=== PATIENT | male | born 1980 | race Two or more races ===

== ENCOUNTER 2025-03-11 06:10 | Day surgery (SDC) | payer MEDICAID, SELFPAY ==
[2025-03-09 08:08] VITALS: BMI 30.4
[2025-03-09 09:00] LABS: Collection Type, Urine Voided; Squamous Epithelial Cell,Urine 0 /hpf (0-5)
[2025-03-09 10:19] LABS: Basophils # (Auto) 0.1 Thou/mm3 (0.0-0.2); Basophils % (Auto) 2 % (0-2.5); Eosinophils # (Auto) 0.2 Thou/mm3 (0.0-0.5); Eosinophils % (Auto) 3 % (0-10); Hematocrit 46.6 % (41.0-53.0); Immature Granulocytes % (Auto) 1 % (0-0); Immature Granulocytes Auto 0.04 Thou/mm3 (0.00-0.00); Lymphocytes # (Auto) 2.3 Thou/mm3 (1.0-4.8); Lymphocytes % (Auto) 35 % (10-50); Mean Corpuscular HGB Conc 36.5 g/dl (31.0-37.0); Mean Corpuscular Hemoglobin 31.6 pg (25.0-35.0); Mean Corpuscular Volume 87 fL (80-100); Monocytes # (Auto) 0.4 Thou/mm3 (0.0-0.8); Monocytes % (Auto) 7 % (0-12); Neutrophils # (Auto) 3.6 Thou/mm3 (1.8-7.7); Neutrophils % (Auto) 54 % (37-80); Nucleated Red Blood Cell % 0 /100 WBC (0); Platelet Count 223 Thou/mm3 (140-440); RDW Standard Deviation 40.9 fL (35.1-43.9); Red Blood Count 5.38 Miln/mm3 (4.50-5.90); White Blood Count 6.6 Thou/mm3 (3.8-10.6)
[2025-03-09 10:22] LABS: Bilirubin,Urine Negative (Negative); Blood,Urine Negative (Negative); Clarity,Urine Clear (Clear/Hazy); Color,Urine Yellow (Lt Yel-Yel); Glucose, Urine Negative (Negative); Ketones,Urine Negative (Negative); Leukocyte Esterase,Urine Negative (Negative); Nitrite,Urine Negative (Negative); Protein,Urine Negative (Neg - Trace); RBC,Urine 2 /hpf (0-3); Specific Gravity,Urine 1.028 (1.001-1.035); Urobilinogen,Urine Negative mg/dL (0.0-1.0); WBC,Urine 1 /hpf (0-5)
[2025-03-09 10:27] LABS: Albumin, Serum 4.3 gm/dL (3.5-5.0); Anion Gap 8 (7-16); BUN/Creatinine Ratio 12 Ratio (12-20); Blood Urea Nitrogen 11 mg/dL (9-23); Chloride 105 mMol/L (98-107); Creatinine (Component) 0.9 mg/dL (0.6-1.3); Estimated Creatinine Clearance 99.3 mL/min (>60); Glucose 108 mg/dL (74-106); Osmolality,Calculated 279 (275-295); Phosphorous 3.1 mg/dL (2.4-5.1); Potassium 4.3 mMol/L (3.4-5.1); Sodium 140 mMol/L (136-145); eGFR > 60 See Note
[2025-03-11] VITALS (8 sets, daily range): BP systolic 102–128; BP diastolic 66–93; PULSE 62–75; RESP 12–14; TEMP 36.2–36.9; O2SAT 95–98; BMI 30.1
[2025-03-11] MEDS: RINGERS LACTATED 1000 ML 1,000 ML 20 ML IV (06:51)
--- NOTE | 2025-03-11 07:29 | ESHP_ITS ---
RE: ANGELA DILLON : 1980 DATE OF ADMISSION: 03/10/2025 HISTORY OF PRESENT ILLNESS: The patient is a 44-year-old gentleman, Yi- speaking with 7 children. He desires bilateral vasectomy for family planning. PREVIOUS SURGERIES: Bilateral inguinal hernia repair. PAST MEDICAL HISTORY: There is no history of diabetes mellitus and no history of hypertension. MEDICATIONS: None. ALLERGIES: NO MEDICATIONS. CLINICAL EXAMINATION: HEENT: Normal. NECK: Supple. LUNGS: Clear. CARDIOVASCULAR: Heart sounds are normal. ABDOMEN: Soft without any organomegaly. No guarding. No rigidity. EXTREMITIES: Normal. GENITOURINARY: Phallus is normal. Testes are down in scrotum. IMPRESSION: The patient desiring bilateral vasectomy for family planning. PLAN: Bilateral vasectomy. Planned procedure, risks and complications have been discussed with the patient. The patient has understood them and agreed to proceed. DT: 14:22:11 TT: 16:34:00 Ref: [id number] - TID: [id number]
--- NOTE | 2025-03-11 07:41 | SUR.PREOP ---
Patient expressed gratitude for prayer before their procedure.
--- NOTE | 2025-03-11 09:10 | SUR.PHASEI ---
0910: Pt. arrived with oral airway in place, vitals stable, breathing unlabored, no signs of distress, dressing to groin CDI, no active bleed noted, report received from MD Matson and Sun RN.
--- NOTE | 2025-03-11 10:10 | SUR.PHASEII ---
1010: Pt. AAOx4, vitals stable, breathing unlabored, no complaint of pain or nausea, dressing to groin CDI, no active bleed noted, pt. tolerated sips of water well, pt. ambulated to wheelchair with steady gait and no assist, no complications. GAve discharge instructions to the pt. and his ride using helicopter crew chief, both verbalized understanding and had no further questions. Pt. left with all personal belongings.
--- NOTE | 2025-03-11 14:19 | ESOP_ITS ---
RE: ANGELA DILLON : 1980 DATE OF OPERATION: 03/11/2025 PREOPERATIVE DIAGNOSIS: The patient desiring bilateral vasectomy for family planning. POSTOPERATIVE DIAGNOSIS: The patient desiring bilateral vasectomy for family planning. PROCEDURE PERFORMED: Bilateral vasectomy. ANESTHESIA: General. INDICATION: The patient is a 44-year-old gentleman desiring bilateral vasectomy for family planning. Bilateral vasectomy is scheduled. Planned procedure, risks, and complications have been discussed with the patient. The patient understood them and agreed to proceed. DESCRIPTION OF PROCEDURE: After the patient was brought to the operating table under adequate general anesthesia and supine position, parts were prepped and draped in the usual fashion. Right vas deferens was made subcutaneous. A small transverse incision was then made 0.5 cm long over the right vas deferens. Dissection was then carried out. Small segment of the right vas deferens was isolated from surrounding structures. Two clamps were placed on the vas deferens. The segment between the clamps was excised and sent for histological examination. The ends of the vas deferens were fulgurated and ligated using 3-0 chromic catgut sutures. Complete hemostasis was obtained. The skin wound was closed with interrupted sutures of 3-0 chromic catgut. In a similar fashion, the left-sided vasectomy was done. Local anesthetic was injected at the site of the skin. Sterile dressing was then applied. The patient was then transferred to the recovery room in a satisfactory condition having tolerated the entire procedure well. Sponge count and needle count at the end of the procedure was found to be correct. Estimated blood loss was approximately 1 mL. DT: 10:24:04 TT: 14:17:00 Ref: [id number] - TID: [id number]
== END 2025-03-11 10:10 | disposition home or self-care (01) ==
PROVIDERS: PCP Physician Assistant; Referring Provider Surgery; Visit Provider Surgery
PROC: (CPT 55250; principal; 2025-03-11 08:30)
DX: Z30.2 Encounter for sterilization (principal)
CPT/HCPCS: 55250; 36415; 80069; 81001; 85025; A4217; A4649; J0690; J1100; J1885; J2250; J2405; J2704; J3010; J3490; J7120; L8330; J0665